=== PATIENT | female | born 1950 | race Caucasian/White ===

== ENCOUNTER 2018-02-06 14:13 | Outpatient (CLI) | payer BC | END 2018-02-06 14:14 | disposition home or self-care (01) | LOC: BICMAMMO 14:13 | PROVIDERS: ATTEND Obstetrics & Gynecology | DX: Z12.31 Encounter for screening mammogram for malignant neoplasm of breast (principal); N63.10 Unspecified lump in the right breast, unspecified quadrant | CPT/HCPCS: 77063; 77067 ==

== ENCOUNTER 2018-03-14 09:43 | Outpatient (CLI) | payer BC | END 2018-03-14 09:44 | disposition home or self-care (01) | LOC: BICMAMMO 09:43 | PROVIDERS: ATTEND Obstetrics & Gynecology | DX: N63.10 Unspecified lump in the right breast, unspecified quadrant (principal) | CPT/HCPCS: G0279 ==

== ENCOUNTER 2019-02-08 12:52 | Outpatient (CLI) | payer BC ==
--- NOTE | 2019-02-08 13:48 | MMO ---
Bilateral MAMMO Bilat Screen [facility]. CLINICAL HISTORY: Patient is 68 years old and is seen for screening. The patient has no family history of breast cancer. The patient has no personal history of cancer. VIEWS: The views performed were: bilateral craniocaudal with tomosynthesis and bilateral mediolateral oblique with tomosynthesis. FILMS COMPARED: The present examination has been compared to prior imaging studies performed at [facility] on 02/06/2018 and 03/14/2018. MAMMOGRAM FINDINGS: There are scattered fibroglandular densities. There are stable benign appearing calcifications seen in both breasts. There are no suspicious masses, suspicious calcifications, or new areas of architectural distortion. IMPRESSION: THERE IS NO MAMMOGRAPHIC EVIDENCE OF MALIGNANCY. A ROUTINE FOLLOW-UP MAMMOGRAM IN 1 YEAR IS RECOMMENDED. THE RESULTS OF THIS EXAM WERE SENT TO THE PATIENT. ACR BI-RADS Category 2 - Benign finding MAMMOGRAPHY NOTE: 1. A negative mammogram report should not delay a biopsy if a dominant of clinically suspicious mass is present. 2. Approximately 10% to 15% of breast cancers are not detected by mammography. 3. Adenosis and dense breasts may obscure an underlying neoplasm.
== END 2019-02-08 12:53 | disposition home or self-care (01) ==
LOC: BICMAMMO 12:52
PROVIDERS: ATTEND Obstetrics & Gynecology
DX: Z12.31 Encounter for screening mammogram for malignant neoplasm of breast (principal)
CPT/HCPCS: 77063; 77067

== ENCOUNTER 2021-02-16 17:48 | Inpatient (IN) | payer BC, MEDICARE ==
[~2021-02-16 17:48] MED LIST: Iopamidol-370 76% 500 ML 1 ML ONE
[2021-02-16 19:18] LABS: Mean Corpuscular HGB CONC 31.2 g/dL (32.0-36.0); Mean Corpuscular Hemoglobin 33.7 pg (27.0-31.0); Mean Platelet Volume 9.8 fL (7.4-10.4); Platelet Count 221 thou/uL (130-400); RBC Distribution Width 12.2 % (11.5-14.5); Red Blood Cell (RBC) Count 4.15 mill/uL (4.20-5.40); White Blood Cell (WBC) Count 40.2 thou/uL (4.8-10.8)
[2021-02-16 19:31] LABS: Band 15 % (5-11); Lymphocytes 18 % (21-51); MDiff Complete? YES; Macrocytosis SLIGHT = 6-15 cells (100X) (0-5/hpf); Metamyelocyte 1 % (0-0); Monocytes 5 % (0-10); Neutrophil 61 % (42-75); Platelet Morphology Comment Appears Adequate; Reflex for Review?? YES; Vacuoles SLIGHT
[2021-02-16] MEDS ORDERED: Cefepime 2 GM VIAL ONE (19:32)
[2021-02-16 19:35] LABS: ALT (SGPT) 63 U/L (8-55); AST (SGOT) 169 U/L (5-34); Albumin 3.4 g/dL (3.4-4.8); Alkaline Phosphatase 318 U/L (40-110); BUN (Urea Nitrogen) 24 mg/dL (9.8-20.1); Bilirubin, Total 0.8 mg/dL (0.2-1.2); CK (CPK) 454 U/L (29-168); Calc. Creatinine Clearance 0 mL/min (70-130); Calcium 8.9 mg/dL (7.8-10.44); Chloride 104 mmol/L (98-107); Globulin 2.8 g/dL (2.4-3.5); Glucose 126 mg/dL (80-115); Potassium 3.9 mmol/L (3.5-5.1); Protein, Total 6.2 g/dL (5.8-8.1); Sodium 139 mmol/L (136-145)
[2021-02-16 19:49] LABS: Carbon Dioxide Less than 8 mmol/L (23-31)
[2021-02-16] MEDS ORDERED: Vancomycin 1 GM/200 ML BAG ONE (20:07)
[2021-02-16 20:09] LABS: CKMB 44.1 ng/mL (0-6.6)
[2021-02-16 21:08] LABS: Bacteria/HPF 4+ HPF (None Seen); Bilirubin 1+ (Negative); Blood, Urine 3+ (Negative); Clarity Extra Turbid (Clear); Glucose, Urine (Dipstick) 50 mg/dL (Negative); Ketone, Urine Trace mg/dL (Negative); Leukocyte 25 Leu/uL (Negative); Nitrite Negative (Negative); Protein, Urine (Dipstick) 300 mg/dL (Neg-Trace); RBC/HPF Greater than 50 HPF (0-3); Renal Epithelial 0-3 HPF (None Seen); Specific Gravity, Urine 1.029 (1.002-1.036); pH, Urine 5.5 (5.0-9.0)
[2021-02-16 21:30] LABS: SARS-CoV-2 NAA Rapid Test Not Detected (NotDetected)
[2021-02-16] MEDS ORDERED: Midazolam HCl 2 mg/2 ml Vial ONE (21:54)
[2021-02-16 22:22] LABS: Troponin I 2.213 ng/mL (< 0.028)
[2021-02-16] MEDS ORDERED: Acetaminophen 650 MG Suppository PR PRN (22:25)
[2021-02-16] MEDS ORDERED: Acetaminophen 325 MG TAB PO PRN (22:25)
[2021-02-16] MEDS ORDERED: Pharmacy to Dose VANCOMYCIN AND MEROPENEM IVPB PRN (22:28)
[2021-02-16] MEDS ORDERED: Dextrose 5% in Water 1,000 ML IV PRN (22:29)
[2021-02-16] MEDS ORDERED: Dextrose 50% Abboject 50 ML SYRINGE SLOW IVP PRN (22:29)
[2021-02-16] MEDS ORDERED: Sodium Bicarb 50 MEQ/50 ML Abboject 8.4% SYRINGE IVP SCH (22:30)
[2021-02-16] MEDS ORDERED: Sodium Bicarb 50 MEQ/50 ML Abboject 8.4% SYRINGE ONE ×3 (22:35→22:47)
[2021-02-16] MEDS ORDERED: Dexamethasone 10 MG/ML VIAL ONE (22:36)
[2021-02-16] MEDS ORDERED: Norepinephrine 8 MG/0.9% NS 250 ML ONE (22:47)
[2021-02-16 23:13] LABS: Actual Bicarbonate (HCO3a) 7.5 mEq/L (22-28); Analyzer IN Cardio ER; Base Excess (BEa) -18.5 mEq/L (-2.0 to +3.0); Carboxyhemoglobin (COHb) 0.3 gm% (0.0-3.0); Hemoglobin (Hb) 11.4 g/dL (12.0-16.0); O2 Tension (PaO2), arterial 111.2 mmHg (> 70.0); Potassium - ABG Lab 3.94 mmol/L (3.70-5.30)
[2021-02-16 23:14] LABS: ALV-art Gradient 14.405 mmHg (0-20); CO2 Tension 19.3 mmHg (35.0-45.0); Puncture Site RRA; pH, Arterial 7.21 (7.35-7.45)
[2021-02-16 23:31] LABS: INR-International Normal Ratio 2.9; PTT 50.7 sec (22.9-36.1); Prothrombin Time 31.2 sec (12.0-14.7)
[2021-02-16 23:37] LABS: Magnesium 1.5 mg/dL (1.6-2.6)
[2021-02-17] MEDS ORDERED: Magnesium Sulfate 4 GM in Sodium Chloride 0.9% 250 ML 250 ML IVPB SCH (00:01)
[2021-02-17] MEDS: MEROPENEM 1 GM/50 ML 1 GM in Premix Bag 1 BAG IVPB SCH ×2 (00:41→12:41)
[2021-02-17] MEDS: Sodium Bicarbonate 150 MEQ in Dextrose 5% in Water 1,000 ML IV SCH ×4 (00:41→19:39)
[2021-02-17] MEDS ORDERED: Levothyroxine 100 MCG SDV IVP SCH (01:00)
[2021-02-17 01:07] LABS: BUN (Urea Nitrogen) 26 mg/dL (9.8-20.1); Calc. Creatinine Clearance 39 mL/min (70-130); Calcium 7.3 mg/dL (7.8-10.44); Carbon Dioxide Less than 8 mmol/L (23-31); Chloride 109 mmol/L (98-107); Glucose 108 mg/dL (80-115); Sodium 142 mmol/L (136-145)
[2021-02-17 01:56] LABS: Troponin I 3.238 ng/mL (< 0.028)
[2021-02-17] MEDS ORDERED: Heparin 25,000 units/D5W 500 ML IVPB SCH (02:15)
[2021-02-17] MEDS ORDERED: Heparin 10,000 UNITS/ 10 ML VIAL SLOW IVP SCH (02:15)
[2021-02-17 02:27] LABS: Hemoglobin 11.6 g/dL (12.0-16.0); Platelet Count 186 thou/uL (130-400)
[2021-02-17 03:29] LABS: Lactic Acid Greater than 13.4 mmol/L (0.5-2.2)
[2021-02-17 04:18] LABS: Hemoglobin A1c 6.2 % (4.0-6.0)
[2021-02-17 04:41] LABS: Band 20 % (5-11); Hypochromia SLIGHT = 6-15 cells (100X) (0-5/hpf); Lymphocytes 8 % (21-51); MDiff Complete? YES; Macrocytosis SLIGHT = 6-15 cells (100X) (0-5/hpf); Mean Corpuscular HGB CONC 32.1 g/dL (32.0-36.0); Mean Corpuscular Hemoglobin 33.9 pg (27.0-31.0); Monocytes 4 % (0-10); Neutrophil 68 % (42-75); Platelet Count 173 thou/uL (130-400); Platelet Morphology Comment Appears Adequate; Red Blood Cell (RBC) Count 3.26 mill/uL (4.20-5.40)
[2021-02-17 04:55] LABS: ALT (SGPT) 57 U/L (8-55); AST (SGOT) 145 U/L (5-34); Albumin 2.6 g/dL (3.4-4.8); Alkaline Phosphatase 116 U/L (40-110); Anion Gap 28 mmol/L (10-20); BUN (Urea Nitrogen) 29 mg/dL (9.8-20.1); Bilirubin, Total 0.9 mg/dL (0.2-1.2); Calc. Creatinine Clearance 38 mL/min (70-130); Calcium 7.2 mg/dL (7.8-10.44); Carbon Dioxide 9 mmol/L (23-31); Chloride 108 mmol/L (98-107); Globulin 1.9 g/dL (2.4-3.5); Glucose 234 mg/dL (80-115); Potassium 3.7 mmol/L (3.5-5.1); Protein, Total 4.5 g/dL (5.8-8.1); Sodium 141 mmol/L (136-145); Troponin I 4.575 ng/mL (< 0.028)
[2021-02-17 05:16] LABS: Lactic Acid 12.6 mmol/L (0.5-2.2)
[2021-02-17] MEDS ORDERED: Electrolyte Replacement Protocol 1 EACH FS ONE (07:48)
[2021-02-17] MEDS ORDERED: Ventilator Sedation Protocol 1 EACH FS ONE (07:48)
[2021-02-17] MEDS ORDERED: Fentanyl CADD 100 ML IV SCH (08:00)
[2021-02-17] MEDS ORDERED: Morphine 4 MG/ML VIAL SLOW IVP PRN (08:00)
[2021-02-17] MEDS ORDERED: Propofol BOLUS 1,000 MG/100 ML VIAL IV PRN (08:00)
[2021-02-17] MEDS ORDERED: Fentanyl BOLUS 250 ML IVPB PRN (08:00)
[2021-02-17] MEDS ORDERED: Lorazepam 2 MG/ML VIAL SLOW IVP PRN (08:00)
[2021-02-17] MEDS ORDERED: Morphine 2 MG/ML VIAL SLOW IVP PRN (08:00)
[2021-02-17] MEDS ORDERED: Electrolyte Replacement Protocol FS PRN (08:00)
[2021-02-17 08:27] LABS: INR-International Normal Ratio 3.2; Prothrombin Time 33.7 sec (12.0-14.7)
[2021-02-17 08:28] LABS: Troponin I 5.468 ng/mL (< 0.028)
[2021-02-17 08:33] LABS: PTT 134.3 sec (22.9-36.1)
[2021-02-17 08:36] LABS: ALT (SGPT) 69 U/L (8-55); AST (SGOT) 170 U/L (5-34); Albumin 2.6 g/dL (3.4-4.8); Alkaline Phosphatase 108 U/L (40-110); Anion Gap 20 mmol/L (10-20); BUN (Urea Nitrogen) 31 mg/dL (9.8-20.1); Bilirubin, Total 1.2 mg/dL (0.2-1.2); Calc. Creatinine Clearance 39 mL/min (70-130); Carbon Dioxide 15 mmol/L (23-31); Chloride 105 mmol/L (98-107); Glucose 410 mg/dL (80-115); Potassium 3.3 mmol/L (3.5-5.1); Protein, Total 4.6 g/dL (5.8-8.1); Sodium 137 mmol/L (136-145)
[2021-02-17] MEDS: Norepinephrine 8 MG/0.9% NS 250 ML IVPB SCH ×3 (08:37→22:32)
[2021-02-17] MEDS ORDERED: Famotidine 20 MG TAB PO SCH (09:00)
[2021-02-17] MEDS ORDERED: Lidocaine 1% (PF) 30 ML VIAL ONE (09:16)
[2021-02-17] MEDS: Pantoprazole 40 MG VIAL IVP SCH (09:20)
[2021-02-17] MEDS: Potassium Chloride 20 MEQ in Premix Bag 1 BAG IVPB SCH ×2 (09:28→12:42)
[2021-02-17] MEDS ORDERED: Bupivacaine 0.25% HCL 30 ML VIAL ONE (09:41)
[2021-02-17] MEDS ORDERED: Lidocaine 1% w/Epinephrine 1:100K 20 ML VIAL ONE (09:41)
[2021-02-17] MEDS ORDERED: Midazolam HCl 5 mg/5 ml Vial ONE (09:46)
[2021-02-17] MEDS ORDERED: Ketamine 50 MG/ML (10ML VIAL) ONE (09:46)
[2021-02-17] MEDS ORDERED: Fentanyl 100 MCG/2 ML VIAL ONE (09:46)
[2021-02-17] MEDS ORDERED: Dextrose 50% Abboject 50 ML SYRINGE IVP PRN (10:00)
[2021-02-17] MEDS ORDERED: Dextrose 5% in Water 1,000 ML IV PRN (10:00)
[2021-02-17] MEDS ORDERED: Insulin Regular 300 UNITS/3 ML VIAL SC PRN (10:00)
[2021-02-17] MEDS ORDERED: Rocuronium Bromide 10 MG/ML (10ML VIAL) ONE (10:10)
[2021-02-17] MEDS ORDERED: Calcium Chloride 1 GM/10 ML Abboject SYRINGE ONE (10:10)
[2021-02-17] MEDS ORDERED: Insulin Regular 300 UNITS/3 ML VIAL ONE (10:33)
[2021-02-17 11:54] LABS: Actual Bicarbonate (HCO3a) 18.9 mEq/L (22-28); Base Excess (BEa) -5.9 mEq/L (-2.0 to +3.0); Calcium, Ionized (arterial) 1.07 mmol/L (1.12-1.30); Carboxyhemoglobin (COHb) 0.3 gm% (0.0-3.0); Hemoglobin (Hb) 9.4 g/dL (12.0-16.0); O2 Tension (PaO2), arterial 227.3 mmHg (> 70.0); Potassium - ABG Lab 2.81 mmol/L (3.70-5.30); pH, Arterial 7.36 (7.35-7.45)
[2021-02-17 11:55] LABS: Puncture Site Arterial Line
[2021-02-17] MEDS: Propofol 1,000 MG/100 ML VIAL IV PRN (15:10)
[2021-02-17] MEDS: HUMULIN R 100 UNITS in Sodium Chloride 0.9% 100 ML IVPB SCH ×2 (15:10→20:29)
[2021-02-17 18:18] LABS: Hemoglobin 10.5 g/dL (12.0-16.0); Mean Corpuscular HGB CONC 35.2 g/dL (32.0-36.0); Mean Corpuscular Hemoglobin 35.3 pg (27.0-31.0); Mean Platelet Volume 10.1 fL (7.4-10.4); Platelet Count 147 thou/uL (130-400); RBC Distribution Width 12.2 % (11.5-14.5); Red Blood Cell (RBC) Count 2.97 mill/uL (4.20-5.40); White Blood Cell (WBC) Count 36.2 thou/uL (4.8-10.8)
[2021-02-17 18:39] LABS: Lactic Acid 4.1 mmol/L (0.5-2.2)
[2021-02-17 18:40] LABS: Band 26 % (5-11); Basophilic Stippling SLIGHT = 1-2 cells (100X) (None Seen); Lymphocytes 1 % (21-51); MDiff Complete? YES; Metamyelocyte 5 % (0-0); Monocytes 1 % (0-10); Neutrophil 67 % (42-75); Platelet Morphology Comment Appears Adequate; Polychromasia SLIGHT = 2-3 cells (100X) (0-2/hpf)
[2021-02-17 19:28] LABS: Vancomycin, Random 6.8 ug/mL (See Comment)
[2021-02-17] MEDS ORDERED: Vancomycin 1 GM in Premix Bag 1 BAG IVPB SCH (20:00)
[2021-02-17] MEDS ORDERED: Vancomycin HCl 750 MG in Sodium Chloride 0.9% 250 ML 250 ML IVPB SCH (23:59)
[2021-02-18] MEDS: MEROPENEM 1 GM/50 ML 1 GM in Premix Bag 1 BAG IVPB SCH ×2 (00:38→13:01)
[2021-02-18] MEDS: HUMULIN R 100 UNITS in Sodium Chloride 0.9% 100 ML IVPB SCH (00:40)
[2021-02-18] MEDS: Sodium Bicarbonate 150 MEQ in Dextrose 5% in Water 1,000 ML IV SCH (02:31)
[2021-02-18] MEDS: Propofol 1,000 MG/100 ML VIAL IV PRN (03:45)
[2021-02-18] MEDS: Norepinephrine 8 MG/0.9% NS 250 ML IVPB SCH ×2 (04:10→17:01)
[2021-02-18 04:43] LABS: PTT 29.4 sec (22.9-36.1)
[2021-02-18 04:44] LABS: INR-International Normal Ratio 2.3; Prothrombin Time 25.4 sec (12.0-14.7)
[2021-02-18 04:56] LABS: ALT (SGPT) 73 U/L (8-55); AST (SGOT) 186 U/L (5-34); Albumin 2.7 g/dL (3.4-4.8); Alkaline Phosphatase 116 U/L (40-110); Anion Gap 10 mmol/L (10-20); BUN (Urea Nitrogen) 22 mg/dL (9.8-20.1); Bilirubin, Total 0.9 mg/dL (0.2-1.2); Calc. Creatinine Clearance 69 mL/min (70-130); Calcium 7.3 mg/dL (7.8-10.44); Carbon Dioxide 31 mmol/L (23-31); Chloride 104 mmol/L (98-107); Globulin 2.4 g/dL (2.4-3.5); Glucose 92 mg/dL (80-115); Magnesium 2.1 mg/dL (1.6-2.6); Potassium 3.3 mmol/L (3.5-5.1); Protein, Total 5.1 g/dL (5.8-8.1); Sodium 142 mmol/L (136-145)
[2021-02-18 05:09] LABS: Hemoglobin 10.4 g/dL (12.0-16.0); Mean Corpuscular HGB CONC 34.4 g/dL (32.0-36.0); Mean Platelet Volume 10.1 fL (7.4-10.4); Platelet Count 138 thou/uL (130-400); RBC Distribution Width 12.3 % (11.5-14.5); Red Blood Cell (RBC) Count 2.97 mill/uL (4.20-5.40); White Blood Cell (WBC) Count 36.6 thou/uL (4.8-10.8)
[2021-02-18 05:12] LABS: Band 1 % (5-11); Lymphocytes 7 % (21-51); MDiff Complete? YES; Metamyelocyte 2 % (0-0); Monocytes 3 % (0-10); Neutrophil 87 % (42-75); Platelet Morphology Comment Appears Adequate
[2021-02-18] MEDS: Levothyroxine Sodium 50 MCG TAB PO SCH (06:12)
[2021-02-18] MEDS ORDERED: Potassium Chloride 40 MEQ in Sodium Chloride 0.9% 250 ML 250 ML IVPB SCH (07:15)
[2021-02-18 07:57] LABS: Actual Bicarbonate (HCO3a) 28.8 mEq/L (22-28); Base Excess (BEa) 6.1 mEq/L (-2.0 to +3.0); CO2 Tension 34.7 mmHg (35.0-45.0); Calcium, Ionized (arterial) 0.94 mmol/L (1.12-1.30); Carboxyhemoglobin (COHb) 0.3 gm% (0.0-3.0); Hemoglobin (Hb) 10.8 g/dL (12.0-16.0); O2 Tension (PaO2), arterial 72.1 mmHg (> 70.0); pH, Arterial 7.54 (7.35-7.45)
[2021-02-18] MEDS ORDERED: Dextrose 5% in Water 1,000 ML IV PRN (08:01)
[2021-02-18] MEDS ORDERED: Insulin Regular 300 UNITS/3 ML VIAL SC PRN (08:01)
[2021-02-18] MEDS ORDERED: DC Sedation Protocol FS ONE (08:01)
[2021-02-18] MEDS ORDERED: Dextrose 50% Abboject 50 ML SYRINGE SLOW IVP PRN (08:01)
[2021-02-18 08:02] LABS: ALV-art Gradient 169.725 mmHg (0-20); Puncture Site RRA
[2021-02-18 08:11] LABS: Lactic Acid 2.4 mmol/L (0.5-2.2)
[2021-02-18] MEDS ORDERED: Cefepime 1 GM in Sodium Chloride 0.9% 100 ML IVPB SCH (09:00)
[2021-02-18] MEDS ORDERED: Heparin 5,000 UNITS/ML VIAL SC SCH (09:00)
[2021-02-18] MEDS: Pantoprazole 40 MG VIAL IVP SCH (09:18)
[2021-02-18] MEDS: Lactated Ringer's 1,000 ML IV SCH (09:18)
[2021-02-18 13:20] LABS: Potassium 3.7 mmol/L (3.5-5.1)
[2021-02-18 13:21] LABS: Glucose 128 mg/dL (80-115)
[2021-02-18 14:42] LABS: Vancomycin, Random 10.2 ug/mL (See Comment)
[2021-02-18] MEDS ORDERED: VANCOMYCIN 1.25 GM/250 ML BAG 1.25 GM in Premix Bag 1 BAG IVPB SCH (16:00)
[2021-02-18 17:33] LABS: HBSAB Concentration Less than 8.00 mIU/mL; HBSAg Index 0.26 S/CO (0-0.99); Hep A IgM AB Non-Reactive (NonReactive); Hep A IgM S/CO 0.07 S/CO (0-0.79); Hep B Surf AB Non-Reactive (NonReactive); Hep B Surf Ag Non-Reactive S/CO (NonReactive); Hep C IgG Ab Non-Reactive (NonReactive)
[2021-02-18] MEDS ORDERED: Phytonadione 10 MG/ML AMP SC SCH (18:30)
[2021-02-18] MEDS: Thiamine 100 MG TAB PO SCH (18:33)
[2021-02-19] MEDS: MEROPENEM 1 GM/50 ML 1 GM in Premix Bag 1 BAG IVPB SCH ×3 (00:47→16:11)
[2021-02-19] MEDS: Lactated Ringer's 1,000 ML IV SCH (00:50)
[2021-02-19 02:03] LABS: Glucose 149 mg/dL (80-115)
[2021-02-19] MEDS ORDERED: Furosemide 20 MG/2 ML VIAL SLOW IVP SCH ×2 (04:15→04:30)
[2021-02-19 04:17] LABS: Actual Bicarbonate (HCO3a) 27.8 mEq/L (22-28); Base Excess (BEa) 3.3 mEq/L (-2.0 to +3.0); CO2 Tension 41.9 mmHg (35.0-45.0); Calcium, Ionized (arterial) 1.06 mmol/L (1.12-1.30); Carboxyhemoglobin (COHb) 0.3 gm% (0.0-3.0); Hemoglobin (Hb) 10.8 g/dL (12.0-16.0); O2 Tension (PaO2), arterial 91.9 mmHg (> 70.0); Potassium - ABG Lab 3.64 mmol/L (3.70-5.30); pH, Arterial 7.44 (7.35-7.45)
[2021-02-19 04:23] LABS: ALV-art Gradient 140.925 mmHg (0-20); Puncture Site RRA
[2021-02-19 05:21] LABS: INR-International Normal Ratio 1.3; Prothrombin Time 16.7 sec (12.0-14.7)
[2021-02-19 05:40] LABS: #Lymphocytes 2.1 thou/uL (1.20-3.40); #Monocytes 0.4 thou/uL (0.11-0.59); #Neutrophils 16.1 thou/uL (1.40-6.50); %Basophils 0.1 % (0.0-1.0); %Eosinophils 0.1 % (0.0-10.0); %Lymphocytes 11.3 % (21.0-51.0); %Monocytes 2.2 % (0.0-10.0); %Neutrophils 86.3 % (42.0-75.0); Hemoglobin 9.9 g/dL (12.0-16.0); Mean Corpuscular HGB CONC 33.8 g/dL (32.0-36.0); Mean Corpuscular Hemoglobin 34.6 pg (27.0-31.0); Mean Platelet Volume 10.5 fL (7.4-10.4); Platelet Count 73 thou/uL (130-400); Platelet Morphology Comment Appears Decreased; RBC Distribution Width 12.6 % (11.5-14.5); Red Blood Cell (RBC) Count 2.84 mill/uL (4.20-5.40); White Blood Cell (WBC) Count 18.7 thou/uL (4.8-10.8)
[2021-02-19 05:44] LABS: ALT (SGPT) 81 U/L (8-55); AST (SGOT) 176 U/L (5-34); Albumin 2.7 g/dL (3.4-4.8); Alkaline Phosphatase 228 U/L (40-110); Anion Gap 9 mmol/L (10-20); BUN (Urea Nitrogen) 18 mg/dL (9.8-20.1); Bilirubin, Total 0.7 mg/dL (0.2-1.2); Calc. Creatinine Clearance 73 mL/min (70-130); Calcium 7.6 mg/dL (7.8-10.44); Carbon Dioxide 30 mmol/L (23-31); Chloride 106 mmol/L (98-107); Globulin 2.1 g/dL (2.4-3.5); Glucose 139 mg/dL (80-115); Iron 63 ug/dL (50-170); Iron Binding Capacity, Total 201 mcg/dL (265-497); Magnesium 1.6 mg/dL (1.6-2.6); Potassium 3.6 mmol/L (3.5-5.1); Protein, Total 4.8 g/dL (5.8-8.1); Sodium 141 mmol/L (136-145)
[2021-02-19] MEDS: Levothyroxine Sodium 50 MCG TAB PO SCH (05:55)
[2021-02-19] MEDS ORDERED: Magnesium 2 GM/50 ML 2 GM in Premix Bag 1 BAG IVPB SCH (06:15)
[2021-02-19] MEDS: Pantoprazole 40 MG VIAL IVP SCH (08:30)
[2021-02-19 09:38] LABS: Reference Lab Name LABCORP
[2021-02-19 09:39] LABS: Ref Lab Test Ordered METFORMIN
[2021-02-19] MEDS: Thiamine 100 MG TAB PO SCH (16:11)
[2021-02-19 17:17] LABS: EliA Vaculitis New Method **** NEW METHOD ****; Mitochondrial Ab 4.8 U/mL (<4 Negative)
[2021-02-19] MEDS: Phytonadione 10 MG/ML AMP SC SCH (20:18)
[2021-02-20] MEDS: MEROPENEM 1 GM/50 ML 1 GM in Premix Bag 1 BAG IVPB SCH ×3 (01:33→17:24)
[2021-02-20 05:09] LABS: Hemoglobin 9.4 g/dL (12.0-16.0); Mean Corpuscular HGB CONC 33.9 g/dL (32.0-36.0); Mean Corpuscular Hemoglobin 35.1 pg (27.0-31.0); Mean Platelet Volume 9.8 fL (7.4-10.4); Platelet Count 66 thou/uL (130-400); RBC Distribution Width 12.4 % (11.5-14.5); Red Blood Cell (RBC) Count 2.67 mill/uL (4.20-5.40); White Blood Cell (WBC) Count 12.3 thou/uL (4.8-10.8)
[2021-02-20 05:17] LABS: PTT 27.6 sec (22.9-36.1); Prothrombin Time 13.8 sec (12.0-14.7)
[2021-02-20 05:42] LABS: Anion Gap 11 mmol/L (10-20); BUN (Urea Nitrogen) 17 mg/dL (9.8-20.1); Calc. Creatinine Clearance 74 mL/min (70-130); Calcium 7.9 mg/dL (7.8-10.44); Carbon Dioxide 28 mmol/L (23-31); Chloride 107 mmol/L (98-107); Glucose 100 mg/dL (80-115); Magnesium 1.7 mg/dL (1.6-2.6); Potassium 3.4 mmol/L (3.5-5.1); Sodium 143 mmol/L (136-145)
[2021-02-20] MEDS ORDERED: Potassium Chloride 20 MEQ TAB PO SCH (06:15)
[2021-02-20] MEDS ORDERED: Magnesium 2 GM/50 ML 2 GM in Premix Bag 1 BAG IVPB SCH (06:15)
[2021-02-20] MEDS: Levothyroxine Sodium 50 MCG TAB PO SCH (06:43)
[2021-02-20 07:04] LABS: Band 10 % (5-11); Lymphocytes 14 % (21-51); MDiff Complete? YES; Neutrophil 76 % (42-75); Platelet Morphology Comment Appears Decreased
[2021-02-20] MEDS: Pantoprazole 40 MG VIAL IVP SCH (09:26)
[2021-02-20] MEDS ORDERED: GUAIFENESIN SF SOLN 200 MG/10 ML UDCUP PO PRN (09:59)
[2021-02-20] MEDS ORDERED: Senokot S 8.6-50 MG TAB PO PRN (09:59)
[2021-02-20] MEDS ORDERED: Bisacodyl 5 MG TAB PO PRN (09:59)
[2021-02-20] MEDS ORDERED: Calcium Carbonate 500 MG ChewTAB PO PRN (09:59)
[2021-02-20] MEDS ORDERED: Sodium Chloride 0.65% Nasal 44 ML BOT EA NARE PRN (09:59)
[2021-02-20] MEDS ORDERED: Ondansetron ODT 4 MG TAB SL PRN (09:59)
[2021-02-20] MEDS ORDERED: hydrALAZINE 20 MG/ML VIAL SLOW IVP PRN (09:59)
[2021-02-20] MEDS ORDERED: Cepastat Lozenges 1 LOZ PO PRN (09:59)
[2021-02-20] MEDS ORDERED: Loratadine 10 MG TAB PO PRN (09:59)
[2021-02-20] MEDS ORDERED: PROPOFOL 200 MG/20 ML VIAL ONE (11:45)
[2021-02-20] MEDS ORDERED: Lidocaine 1% PF 5 ML VIAL ONE (11:45)
[2021-02-20] MEDS ORDERED: Promethazine HCl 25 MG/ML VIAL IM PRN (11:54)
[2021-02-20] MEDS ORDERED: Ondansetron HCl/PF 4 MG/2 ML Vial IVP PRN (11:54)
[2021-02-20] MEDS ORDERED: Promethazine HCl 25 MG/ML VIAL SLOW IVP PRN (11:54)
[2021-02-20] MEDS: Folic Acid/Vit B Comp W-C PO SCH (13:18)
[2021-02-20] MEDS: Potassium Chloride 10 MEQ in Premix Bag 1 BAG IVPB SCH ×3 (13:19→17:44)
[2021-02-20] MEDS: Thiamine 100 MG TAB PO SCH (17:24)
[2021-02-20] MEDS: Phytonadione 10 MG/ML AMP SC SCH (20:54)
[2021-02-21] MEDS: MEROPENEM 1 GM/50 ML 1 GM in Premix Bag 1 BAG IVPB SCH ×3 (00:44→16:57)
[2021-02-21] MEDS: Levothyroxine Sodium 50 MCG TAB PO SCH (05:18)
[2021-02-21 05:43] LABS: #Lymphocytes 1.6 thou/uL (1.20-3.40); #Monocytes 0.6 thou/uL (0.11-0.59); #Neutrophils 8.1 thou/uL (1.40-6.50); %Eosinophils 0.4 % (0.0-10.0); %Lymphocytes 15.3 % (21.0-51.0); %Monocytes 5.4 % (0.0-10.0); Hemoglobin 9.5 g/dL (12.0-16.0); Mean Corpuscular HGB CONC 33.7 g/dL (32.0-36.0); Mean Corpuscular Hemoglobin 34.8 pg (27.0-31.0); Mean Platelet Volume 10.8 fL (7.4-10.4); Platelet Count 55 thou/uL (130-400); RBC Distribution Width 12.1 % (11.5-14.5); Red Blood Cell (RBC) Count 2.72 mill/uL (4.20-5.40); White Blood Cell (WBC) Count 10.3 thou/uL (4.8-10.8)
[2021-02-21 05:47] LABS: PTT 26.4 sec (22.9-36.1); Prothrombin Time 13.7 sec (12.0-14.7)
[2021-02-21 06:06] LABS: ALT (SGPT) 60 U/L (8-55); AST (SGOT) 93 U/L (5-34); Albumin 2.8 g/dL (3.4-4.8); Alkaline Phosphatase 339 U/L (40-110); Bilirubin, Direct 0.9 mg/dL (0.1-0.3); Bilirubin, Total 1.4 mg/dL (0.2-1.2); Phosphorus 2.6 mg/dL (2.3-4.7); Protein, Total 5.3 g/dL (5.8-8.1)
[2021-02-21 06:16] LABS: Anion Gap 12 mmol/L (10-20); BUN (Urea Nitrogen) 16 mg/dL (9.8-20.1); Calc. Creatinine Clearance 104 mL/min (70-130); Calcium 8.1 mg/dL (7.8-10.44); Carbon Dioxide 23 mmol/L (23-31); Chloride 108 mmol/L (98-107); Glucose 102 mg/dL (80-115); Magnesium 1.7 mg/dL (1.6-2.6); Potassium 3.8 mmol/L (3.5-5.1); Sodium 139 mmol/L (136-145)
[2021-02-21] MEDS: Folic Acid/Vit B Comp W-C PO SCH (10:09)
[2021-02-21] MEDS ORDERED: Furosemide 40 MG/4 ML VIAL SLOW IVP SCH (11:15)
[2021-02-21] MEDS: Phytonadione 10 MG/ML AMP SC SCH (20:29)
[2021-02-22] MEDS: MEROPENEM 1 GM/50 ML 1 GM in Premix Bag 1 BAG IVPB SCH ×3 (02:29→15:46)
[2021-02-22 05:27] LABS: #Lymphocytes 1.8 thou/uL (1.20-3.40); #Monocytes 0.7 thou/uL (0.11-0.59); #Neutrophils 3.4 thou/uL (1.40-6.50); %Basophils 0.5 % (0.0-1.0); %Eosinophils 0.7 % (0.0-10.0); %Lymphocytes 30.6 % (21.0-51.0); %Monocytes 11.5 % (0.0-10.0); %Neutrophils 56.7 % (42.0-75.0); Hemoglobin 9.1 g/dL (12.0-16.0); Mean Corpuscular Hemoglobin 35.5 pg (27.0-31.0); Mean Platelet Volume 10.4 fL (7.4-10.4); Platelet Count 54 thou/uL (130-400); RBC Distribution Width 12.1 % (11.5-14.5); Red Blood Cell (RBC) Count 2.56 mill/uL (4.20-5.40)
[2021-02-22 05:33] LABS: ALT (SGPT) 48 U/L (8-55); AST (SGOT) 63 U/L (5-34); Albumin 2.8 g/dL (3.4-4.8); Alkaline Phosphatase 299 U/L (40-110); Bilirubin, Direct 0.7 mg/dL (0.1-0.3); Bilirubin, Total 1.1 mg/dL (0.2-1.2)
[2021-02-22 05:39] LABS: Anion Gap 10 mmol/L (10-20); BUN (Urea Nitrogen) 14 mg/dL (9.8-20.1); Calc. Creatinine Clearance 98 mL/min (70-130); Calcium 8.2 mg/dL (7.8-10.44); Carbon Dioxide 28 mmol/L (23-31); Chloride 106 mmol/L (98-107); Glucose 119 mg/dL (80-115); Potassium 3.3 mmol/L (3.5-5.1); Sodium 141 mmol/L (136-145)
[2021-02-22] MEDS: Levothyroxine Sodium 50 MCG TAB PO SCH (06:31)
[2021-02-22] MEDS ORDERED: Potassium Chloride 20 MEQ TAB PO SCH (06:45)
[2021-02-22] MEDS: Potassium Chloride 20 MEQ TAB PO SCH ×2 (08:36→20:53)
[2021-02-22] MEDS: Folic Acid/Vit B Comp W-C PO SCH (08:36)
[2021-02-22] MEDS: Metoprolol Tartrate 25 MG TAB PO SCH ×2 (08:36→20:53)
[2021-02-22] MEDS: Saccharomyces boulardii 250 MG CAP PO SCH (08:36)
[2021-02-22] MEDS: Magnesium Oxide 400 MG TAB PO SCH ×2 (08:36→20:54)
[2021-02-22] MEDS: Polyethylene Glycol 3350 17 GM Packet PO SCH (08:37)
[2021-02-22] MEDS ORDERED: Metoprolol Tartrate 25 MG TAB PO SCH (09:00)
[2021-02-22 12:17] LABS: Actual Bicarbonate (HCO3a) 21.1 mEq/L (22-28); Analyzer IN Cardio OR; Base Excess (BEa) -1.6 mEq/L (-2.0 to +3.0); CO2 Tension 28.9 mmHg (35.0-45.0); Hemoglobin (Hb) 10.2 g/dL (12.0-16.0); pH, Arterial 7.48 (7.35-7.45)
[2021-02-22 12:22] LABS: Actual Bicarbonate (HCO3a) 19.5 mEq/L (22-28); Analyzer IN Cardio OR; Base Excess (BEa) -3.1 mEq/L (-2.0 to +3.0); CO2 Tension 26.5 mmHg (35.0-45.0); Calcium, Ionized (arterial) 1.34 mmol/L (1.12-1.30); Hemoglobin (Hb) 9.3 g/dL (12.0-16.0); Potassium - ABG Lab 2.99 mmol/L (3.70-5.30); pH, Arterial 7.48 (7.35-7.45)
[2021-02-22 12:30] LABS: O2 Tension (PaO2), arterial 545.4 mmHg (> 70.0)
[2021-02-22 12:30] LABS: Puncture Site Arterial Line
[2021-02-22 12:31] LABS: Puncture Site Arterial Line
[2021-02-22] MEDS ORDERED: Furosemide 40 MG/4 ML VIAL SLOW IVP SCH ×2 (14:00)
[2021-02-22] MEDS: Furosemide 20 MG/2 ML VIAL SLOW IVP SCH (15:46)
[2021-02-23] MEDS: MEROPENEM 1 GM/50 ML 1 GM in Premix Bag 1 BAG IVPB SCH (00:33)
[2021-02-23 05:11] LABS: #Eosinphils 0.1 thou/uL (0.0-0.7); #Lymphocytes 2.2 thou/uL (1.20-3.40); #Neutrophils 3.8 thou/uL (1.40-6.50); %Lymphocytes 31.2 % (21.0-51.0); %Monocytes 13.5 % (0.0-10.0); %Neutrophils 53.4 % (42.0-75.0); Mean Corpuscular HGB CONC 34.4 g/dL (32.0-36.0); Mean Corpuscular Hemoglobin 34.7 pg (27.0-31.0); Mean Platelet Volume 10.4 fL (7.4-10.4); Platelet Count 68 thou/uL (130-400)
[2021-02-23 05:14] LABS: ALT (SGPT) 46 U/L (8-55); AST (SGOT) 63 U/L (5-34); Albumin 2.8 g/dL (3.4-4.8); Alkaline Phosphatase 269 U/L (40-110); Bilirubin, Direct 0.7 mg/dL (0.1-0.3); Bilirubin, Total 1.2 mg/dL (0.2-1.2); Protein, Total 5.2 g/dL (5.8-8.1)
[2021-02-23 05:22] LABS: Anion Gap 11 mmol/L (10-20); BUN (Urea Nitrogen) 10 mg/dL (9.8-20.1); Calc. Creatinine Clearance 98 mL/min (70-130); Calcium 8.5 mg/dL (7.8-10.44); Carbon Dioxide 29 mmol/L (23-31); Chloride 104 mmol/L (98-107); Glucose 106 mg/dL (80-115); Magnesium 1.6 mg/dL (1.6-2.6); Potassium 3.3 mmol/L (3.5-5.1); Sodium 141 mmol/L (136-145)
[2021-02-23] MEDS: Levothyroxine Sodium 50 MCG TAB PO SCH (05:59)
[2021-02-23] MEDS: Furosemide 20 MG/2 ML VIAL SLOW IVP SCH ×2 (05:59→15:15)
[2021-02-23] MEDS ORDERED: Potassium Chloride 20 MEQ TAB PO SCH (07:45)
[2021-02-23] MEDS: Magnesium Oxide 400 MG TAB PO SCH ×2 (08:25→20:32)
[2021-02-23] MEDS: Folic Acid 1 MG TAB PO SCH (08:26)
[2021-02-23] MEDS: Polyethylene Glycol 3350 17 GM Packet PO SCH (08:26)
[2021-02-23] MEDS: Saccharomyces boulardii 250 MG CAP PO SCH (08:26)
[2021-02-23] MEDS: Metoprolol Tartrate 25 MG TAB PO SCH ×2 (08:26→20:32)
[2021-02-23] MEDS: Cyanocobalamin (Vitamin B-12) 1,000 MCG TAB PO SCH (08:28)
[2021-02-23 11:17] LABS: Alpha-1-Antitrypsin 141 mg/dL (101-187)
[2021-02-23 13:17] LABS: Smooth Muscle Total ABS 9 Units (0-19)
[2021-02-23 15:14] LABS: Heparin-Induced Ab (HITA) 0.05 OD (0.000-0.400)
[2021-02-23] MEDS: Ondansetron PF 4 MG/2 ML Vial IVP PRN (22:46)
[2021-02-24 05:08] LABS: Mean Corpuscular HGB CONC 33.9 g/dL (32.0-36.0); Mean Corpuscular Hemoglobin 34.9 pg (27.0-31.0); Mean Platelet Volume 10.8 fL (7.4-10.4); Platelet Count 101 thou/uL (130-400); RBC Distribution Width 12.7 % (11.5-14.5); Red Blood Cell (RBC) Count 2.88 mill/uL (4.20-5.40); White Blood Cell (WBC) Count 9.5 thou/uL (4.8-10.8)
[2021-02-24 05:22] LABS: Anion Gap 14 mmol/L (10-20); BUN (Urea Nitrogen) 10 mg/dL (9.8-20.1); Calc. Creatinine Clearance 85 mL/min (70-130); Calcium 8.8 mg/dL (7.8-10.44); Carbon Dioxide 33 mmol/L (23-31); Chloride 99 mmol/L (98-107); Glucose 126 mg/dL (80-115); Potassium 3.5 mmol/L (3.5-5.1); Sodium 142 mmol/L (136-145)
[2021-02-24 05:42] LABS: Band 18 % (5-11); Lymphocytes 21 % (21-51); MDiff Complete? YES; Monocytes 7 % (0-10); Neutrophil 54 % (42-75); Platelet Morphology Comment Appears Decreased
[2021-02-24] MEDS: Cyanocobalamin (Vitamin B-12) 1,000 MCG TAB PO SCH (06:06)
[2021-02-24] MEDS: Folic Acid 1 MG TAB PO SCH (06:06)
[2021-02-24] MEDS: Metoprolol Tartrate 25 MG TAB PO SCH ×2 (06:07→20:54)
[2021-02-24] MEDS: Magnesium Oxide 400 MG TAB PO SCH ×2 (06:07→20:52)
[2021-02-24] MEDS: Saccharomyces boulardii 250 MG CAP PO SCH ×2 (06:07→08:44)
[2021-02-24] MEDS: Levothyroxine Sodium 50 MCG TAB PO SCH (06:07)
[2021-02-24] MEDS: Ondansetron PF 4 MG/2 ML Vial IVP PRN (06:12)
[2021-02-24] MEDS ORDERED: Fentanyl 100 MCG/2 ML VIAL ONE (07:16)
[2021-02-24] MEDS ORDERED: Phenylephrine 10 MG/ML VIAL ONE (07:17)
[2021-02-24] MEDS ORDERED: Propofol 500 MG/50 ML VIAL ONE ×2 (07:42→09:20)
[2021-02-24] MEDS ORDERED: Lidocaine 1% (PF) 30 ML VIAL ONE (08:01)
[2021-02-24] MEDS ORDERED: Lidocaine 1% PF 5 ML VIAL ONE (08:11)
[2021-02-24] MEDS ORDERED: Ondansetron PF 4 MG/2 ML Vial ONE (08:11)
[2021-02-24] MEDS ORDERED: PHENYLEPHRINE-NS 100 MCG/ML 10 ML SYRINGE ONE (08:11)
[2021-02-24] MEDS ORDERED: Iopamidol 370 76% 50 ML VIAL FS ONE (08:43)
[2021-02-24] MEDS ORDERED: Iopamidol 370 76% 100 ML VIAL ONE (08:43)
[2021-02-24] MEDS: Polyethylene Glycol 3350 17 GM Packet PO SCH (08:44)
[2021-02-24] MEDS: Furosemide 20 MG/2 ML VIAL SLOW IVP SCH ×2 (08:55→15:13)
[2021-02-24] MEDS ORDERED: Nitroglycerin 0.4 MG TAB (25 Tab Bottle) SL PRN (11:12)
[2021-02-24] MEDS ORDERED: Acetaminophen/Codeine 30-300mg Tablet PO PRN ×2 (11:12)
[2021-02-24] MEDS ORDERED: Sodium Chloride 0.9% 200 ML IV PRN (11:12)
[2021-02-24] MEDS: Aspirin Chewable 81 MG TAB PO SCH ×2 (20:54→20:57)
[2021-02-25 04:58] LABS: #Basophils 0.1 thou/uL (0.0-0.2); #Lymphocytes 2.1 thou/uL (1.20-3.40); #Monocytes 1.3 thou/uL (0.11-0.59); #Neutrophils 9.3 thou/uL (1.40-6.50); %Basophils 0.5 % (0.0-1.0); %Eosinophils 0.3 % (0.0-10.0); %Lymphocytes 16.1 % (21.0-51.0); %Monocytes 10.2 % (0.0-10.0); %Neutrophils 72.9 % (42.0-75.0); Hemoglobin 9.5 g/dL (12.0-16.0); Mean Corpuscular HGB CONC 33.1 g/dL (32.0-36.0); Mean Corpuscular Hemoglobin 34.2 pg (27.0-31.0); Platelet Count 140 thou/uL (130-400); RBC Distribution Width 13.3 % (11.5-14.5); Red Blood Cell (RBC) Count 2.78 mill/uL (4.20-5.40); White Blood Cell (WBC) Count 12.8 thou/uL (4.8-10.8)
[2021-02-25 05:18] LABS: Anion Gap 15 mmol/L (10-20); BUN (Urea Nitrogen) 11 mg/dL (9.8-20.1); Calc. Creatinine Clearance 86 mL/min (70-130); Calcium 8.7 mg/dL (7.8-10.44); Carbon Dioxide 29 mmol/L (23-31); Chloride 100 mmol/L (98-107); Glucose 108 mg/dL (80-115); Potassium 3.3 mmol/L (3.5-5.1); Sodium 141 mmol/L (136-145)
[2021-02-25] MEDS: Furosemide 20 MG/2 ML VIAL SLOW IVP SCH (05:31)
[2021-02-25] MEDS: Levothyroxine Sodium 50 MCG TAB PO SCH (05:35)
[2021-02-25] MEDS: Folic Acid 1 MG TAB PO SCH (08:36)
[2021-02-25] MEDS: Aspirin Chewable 81 MG TAB PO SCH (08:36)
[2021-02-25] MEDS: Cyanocobalamin (Vitamin B-12) 1,000 MCG TAB PO SCH (08:36)
[2021-02-25] MEDS: Metoprolol Tartrate 25 MG TAB PO SCH ×2 (08:36→20:38)
[2021-02-25] MEDS: Magnesium Oxide 400 MG TAB PO SCH ×2 (08:36→20:38)
[2021-02-25] MEDS: Polyethylene Glycol 3350 17 GM Packet PO SCH (08:37)
[2021-02-25] MEDS: Saccharomyces boulardii 250 MG CAP PO SCH (08:37)
[2021-02-25] MEDS ORDERED: Iopamidol 370 76% 100 ML VIAL ONE (09:37)
[2021-02-25] MEDS: Ondansetron PF 4 MG/2 ML Vial IVP PRN (11:54)
[2021-02-25] MEDS: Metoclopramide HCl 10 MG/2 ML VIAL IVP SCH ×2 (15:39→22:23)
[2021-02-25 18:15] LABS: Bacteria/HPF None Seen HPF (None Seen); Bilirubin Negative (Negative); Blood, Urine Negative (Negative); Clarity Clear (Clear); Glucose, Urine (Dipstick) Normal (Negative); Ketone, Urine 80 mg/dL (Negative); Leukocyte Negative Leu/uL (Negative); Nitrite Negative (Negative); Protein, Urine (Dipstick) 30 mg/dL (Neg-Trace); Squamous Epithelial 0-3 HPF (0-3); Urobilinogen Normal mg/dL (Less than 2); WBC/HPF 0-3 HPF (0-3)
[2021-02-25 18:24] LABS: RBC/HPF 0-3 HPF (0-3); Specific Gravity, Urine Greater than 1.060 (1.002-1.036)
[2021-02-25 18:26] LABS: Urine Culture Reflex No No
[2021-02-25] MEDS: Pantoprazole 80 MG in Sodium Chloride 0.9% 100 ML IVPB SCH (20:37)
[2021-02-25] MEDS ORDERED: Pantoprazole 40 MG VIAL IVP SCH (21:00)
[2021-02-25] MEDS: Sodium Chloride 0.9% 1,000 ML IV SCH (22:23)
[2021-02-26 04:45] LABS: #Monocytes 1.2 thou/uL (0.11-0.59); #Neutrophils 10.7 thou/uL (1.40-6.50); %Basophils 0.2 % (0.0-1.0); %Eosinophils 0.2 % (0.0-10.0); %Lymphocytes 14.5 % (21.0-51.0); %Monocytes 8.5 % (0.0-10.0); %Neutrophils 76.6 % (42.0-75.0); Hemoglobin 10.9 g/dL (12.0-16.0); Mean Corpuscular HGB CONC 34.6 g/dL (32.0-36.0); Mean Corpuscular Hemoglobin 35.7 pg (27.0-31.0); Mean Platelet Volume 9.9 fL (7.4-10.4); Platelet Count 199 thou/uL (130-400); RBC Distribution Width 13.5 % (11.5-14.5); Red Blood Cell (RBC) Count 3.06 mill/uL (4.20-5.40); White Blood Cell (WBC) Count 13.9 thou/uL (4.8-10.8)
[2021-02-26 05:08] LABS: Anion Gap 17 mmol/L (10-20); BUN (Urea Nitrogen) 12 mg/dL (9.8-20.1); Calc. Creatinine Clearance 91 mL/min (70-130); Calcium 8.4 mg/dL (7.8-10.44); Carbon Dioxide 31 mmol/L (23-31); Chloride 97 mmol/L (98-107); Glucose 100 mg/dL (80-115); Potassium 3.1 mmol/L (3.5-5.1); Sodium 142 mmol/L (136-145)
[2021-02-26] MEDS: Levothyroxine Sodium 50 MCG TAB PO SCH (05:39)
[2021-02-26] MEDS: Metoclopramide HCl 10 MG/2 ML VIAL IVP SCH ×3 (05:39→21:23)
[2021-02-26] MEDS: Pantoprazole 80 MG in Sodium Chloride 0.9% 100 ML IVPB SCH (06:37)
[2021-02-26] MEDS ORDERED: Iopamidol-370 76% 500 ML 1 ML ONE (10:01)
[2021-02-26] MEDS ORDERED: Lidocaine 1% PF 5 ML VIAL ONE (12:28)
[2021-02-26] MEDS ORDERED: Ondansetron PF 4 MG/2 ML Vial ONE (12:28)
[2021-02-26] MEDS ORDERED: PROPOFOL 200 MG/20 ML VIAL ONE (12:28)
[2021-02-26] MEDS ORDERED: PHENYLEPHRINE-NS 100 MCG/ML 10 ML SYRINGE ONE (12:28)
[2021-02-26] MEDS ORDERED: Succinylcholine 200 MG/10 ml SYRINGE FS ONE (12:28)
[2021-02-26] MEDS ORDERED: ePHEDrine Sulfate 50 MG/10 ML VIAL ONE (12:28)
[2021-02-26] MEDS ORDERED: Ondansetron HCl/PF 4 MG/2 ML Vial IVP PRN (13:08)
[2021-02-26] MEDS ORDERED: Promethazine HCl 25 MG/ML VIAL SLOW IVP PRN (13:08)
[2021-02-26] MEDS ORDERED: Promethazine HCl 25 MG/ML VIAL IM PRN (13:08)
[2021-02-26] MEDS ORDERED: Fentanyl 100 MCG/2 ML VIAL ONE ×2 (13:36→14:04)
[2021-02-26] MEDS: Cyanocobalamin (Vitamin B-12) 1,000 MCG TAB PO SCH (16:21)
[2021-02-26] MEDS: Polyethylene Glycol 3350 17 GM Packet PO SCH (16:21)
[2021-02-26] MEDS: Folic Acid 1 MG TAB PO SCH (16:21)
[2021-02-26] MEDS: Magnesium Oxide 400 MG TAB PO SCH ×2 (16:21→21:28)
[2021-02-26] MEDS: Saccharomyces boulardii 250 MG CAP PO SCH (16:21)
[2021-02-26] MEDS: Aspirin Chewable 81 MG TAB PO SCH (16:21)
[2021-02-26] MEDS: Metoprolol Tartrate 25 MG TAB PO SCH ×2 (16:21→21:28)
[2021-02-26] MEDS: Sodium Chloride 0.9% 1,000 ML IV SCH ×2 (18:12→21:08)
[2021-02-26] MEDS ORDERED: Chloraseptic Spray 180 ml Bottle PO PRN (20:19)
[2021-02-27] MEDS: Pantoprazole 80 MG in Sodium Chloride 0.9% 100 ML IVPB SCH (00:51)
[2021-02-27 05:04] LABS: #Basophils 0.1 thou/uL (0.0-0.2); #Eosinphils 0.1 thou/uL (0.0-0.7); #Lymphocytes 3.1 thou/uL (1.20-3.40); %Basophils 0.4 % (0.0-1.0); %Eosinophils 1.2 % (0.0-10.0); %Lymphocytes 25.1 % (21.0-51.0); %Monocytes 8.3 % (0.0-10.0); %Neutrophils 64.9 % (42.0-75.0); Hemoglobin 9.3 g/dL (12.0-16.0); Mean Corpuscular HGB CONC 32.4 g/dL (32.0-36.0); Mean Corpuscular Hemoglobin 33.8 pg (27.0-31.0); Mean Platelet Volume 9.7 fL (7.4-10.4); Platelet Count 218 thou/uL (130-400); RBC Distribution Width 13.4 % (11.5-14.5); Red Blood Cell (RBC) Count 2.75 mill/uL (4.20-5.40); White Blood Cell (WBC) Count 12.3 thou/uL (4.8-10.8)
[2021-02-27 05:24] LABS: Anion Gap 12 mmol/L (10-20); BUN (Urea Nitrogen) 11 mg/dL (9.8-20.1); Calc. Creatinine Clearance 98 mL/min (70-130); Calcium 8.2 mg/dL (7.8-10.44); Carbon Dioxide 33 mmol/L (23-31); Chloride 98 mmol/L (98-107); Glucose 79 mg/dL (80-115); Sodium 140 mmol/L (136-145)
[2021-02-27 05:37] LABS: Potassium 2.7 mmol/L (3.5-5.1)
[2021-02-27] MEDS: Metoclopramide HCl 10 MG/2 ML VIAL IVP SCH ×3 (06:19→20:48)
[2021-02-27] MEDS: Levothyroxine Sodium 50 MCG TAB PO SCH (06:19)
[2021-02-27] MEDS ORDERED: Electrolyte Replacement Protocol FS PRN (06:30)
[2021-02-27] MEDS: Potassium Chloride 40 MEQ in Premix Bag 1 BAG IVPB SCH ×2 (06:37→10:36)
[2021-02-27] MEDS: Magnesium Oxide 400 MG TAB PO SCH ×2 (10:11→20:47)
[2021-02-27] MEDS: Aspirin Chewable 81 MG TAB PO SCH (10:11)
[2021-02-27] MEDS: Metoprolol Tartrate 25 MG TAB PO SCH ×2 (10:11→20:48)
[2021-02-27] MEDS: Cyanocobalamin (Vitamin B-12) 1,000 MCG TAB PO SCH (10:11)
[2021-02-27] MEDS: Folic Acid 1 MG TAB PO SCH (10:11)
[2021-02-27] MEDS: Polyethylene Glycol 3350 17 GM Packet PO SCH (10:11)
[2021-02-27] MEDS: Saccharomyces boulardii 250 MG CAP PO SCH (10:12)
[2021-02-27 11:13] LABS: Magnesium 1.7 mg/dL (1.6-2.6); Potassium 3.3 mmol/L (3.5-5.1)
[2021-02-27] MEDS ORDERED: Magnesium 2 GM/50 ML 2 GM in Premix Bag 1 BAG IVPB SCH (12:30)
[2021-02-27] MEDS: Dextrose 5 %-0.45 % NaCl 1,000 ML IV SCH (13:02)
[2021-02-27 13:32] LABS: SARS-CoV-2 NAA Rapid Test Not Detected (NotDetected)
[2021-02-27] MEDS: Pantoprazole 40 MG VIAL IVP SCH (20:48)
[2021-02-28] MEDS: Levothyroxine Sodium 50 MCG TAB PO SCH (05:08)
[2021-02-28] MEDS: Metoclopramide HCl 10 MG/2 ML VIAL IVP SCH ×3 (05:44→21:26)
[2021-02-28] MEDS: Cyanocobalamin (Vitamin B-12) 1,000 MCG TAB PO SCH (07:51)
[2021-02-28] MEDS: Dextrose 5 %-0.45 % NaCl 1,000 ML IV SCH (07:51)
[2021-02-28] MEDS: Aspirin Chewable 81 MG TAB PO SCH (07:51)
[2021-02-28] MEDS: Metoprolol Tartrate 25 MG TAB PO SCH ×2 (07:52→21:26)
[2021-02-28] MEDS: Folic Acid 1 MG TAB PO SCH (07:52)
[2021-02-28] MEDS: Saccharomyces boulardii 250 MG CAP PO SCH (07:52)
[2021-02-28] MEDS: Polyethylene Glycol 3350 17 GM Packet PO SCH (07:52)
[2021-02-28] MEDS: Pantoprazole 40 MG VIAL IVP SCH ×2 (07:52→21:26)
[2021-02-28] MEDS: Magnesium Oxide 400 MG TAB PO SCH (07:52)
[2021-02-28] MEDS ORDERED: D5 1/2 NS w/40 mEq KCL 1,000 ML IV SCH (09:30)
[2021-02-28] MEDS ORDERED: HumaLOG 300 UNITS/3 ML VIAL SC PRN (09:30)
[2021-02-28] MEDS ORDERED: Dextrose 5% in Water 1,000 ML IV PRN (09:30)
[2021-02-28] MEDS ORDERED: Dextrose 50% Abboject 50 ML SYRINGE SLOW IVP PRN (09:30)
[2021-02-28 10:31] LABS: Anion Gap 10 mmol/L (10-20); BUN (Urea Nitrogen) 8 mg/dL (9.8-20.1); Calc. Creatinine Clearance 96 mL/min (70-130); Carbon Dioxide 31 mmol/L (23-31); Chloride 103 mmol/L (98-107); Glucose 103 mg/dL (80-115); Potassium 3.1 mmol/L (3.5-5.1); Sodium 141 mmol/L (136-145)
[2021-02-28] MEDS ORDERED: Magnesium 2 GM/50 ML 2 GM in Premix Bag 1 BAG IVPB SCH (12:15)
[2021-02-28] MEDS ORDERED: Potassium Chloride 20 MEQ TAB PO SCH (12:15)
[2021-02-28] MEDS ORDERED: Potassium Chloride 20 MEQ in Premix Bag 1 BAG IVPB SCH (13:00)
[2021-02-28] MEDS: Potassium Chloride 20 MEQ in Premix Bag 1 BAG IVPB SCH ×2 (14:06→16:19)
[2021-03-01 04:54] LABS: Anion Gap 10 mmol/L (10-20); BUN (Urea Nitrogen) 6 mg/dL (9.8-20.1); Calc. Creatinine Clearance 93 mL/min (70-130); Calcium 7.7 mg/dL (7.8-10.44); Carbon Dioxide 29 mmol/L (23-31); Chloride 105 mmol/L (98-107); Glucose 97 mg/dL (80-115); Potassium 3.6 mmol/L (3.5-5.1); Sodium 140 mmol/L (136-145)
[2021-03-01] MEDS: Levothyroxine Sodium 50 MCG TAB PO SCH (05:10)
[2021-03-01] MEDS: Metoclopramide HCl 10 MG/2 ML VIAL IVP SCH ×3 (05:20→21:05)
[2021-03-01] MEDS: Aspirin Chewable 81 MG TAB PO SCH (08:53)
[2021-03-01] MEDS: Folic Acid 1 MG TAB PO SCH (08:54)
[2021-03-01] MEDS: Metoprolol Tartrate 25 MG TAB PO SCH (08:54)
[2021-03-01] MEDS: Saccharomyces boulardii 250 MG CAP PO SCH (08:54)
[2021-03-01] MEDS: Polyethylene Glycol 3350 17 GM Packet PO SCH (08:54)
[2021-03-01] MEDS: Cyanocobalamin (Vitamin B-12) 1,000 MCG TAB PO SCH (08:54)
[2021-03-01] MEDS: Pantoprazole 40 MG VIAL IVP SCH ×2 (08:57→21:05)
[2021-03-01 09:27] VITALS: BMI 27.3
[2021-03-01 10:35] LABS: PTT 26.8 sec (22.9-36.1); Prothrombin Time 13.2 sec (12.0-14.7)
[2021-03-01 10:43] LABS: Cardiac Risk 3.6 (Less than 4.5); Cholesterol 109 mg/dl (< 200 Desired); HDL Cholesterol 30 mg/dL (>60 Neg Risk); LDL Cholesterol, Calculated 59 mg/dL; Phosphorus 3.1 mg/dL (2.3-4.7); Triglycerides 102 mg/dL (Less than 150)
[2021-03-01] MEDS: Metoprolol Tartrate 5 MG/5 ML VIAL IVP SCH ×3 (12:04→23:21)
[2021-03-01] MEDS ORDERED: Magnesium 2 GM/50 ML 2 GM in Premix Bag 1 BAG IVPB SCH (12:30)
[2021-03-01] MEDS ORDERED: COPPER IV SCH (14:00)
[2021-03-01] MEDS ORDERED: MULTIVITAMINS IV SCH (14:00)
[2021-03-01] MEDS ORDERED: SELENIUM IV SCH (14:00)
[2021-03-01] MEDS ORDERED: MANGANESE IV SCH (14:00)
[2021-03-01] MEDS ORDERED: ZINC IV SCH (14:00)
[2021-03-01] MEDS ORDERED: [UNRECOGNIZED DRUG - OTHER] IV SCH (14:00)
[2021-03-02 05:30] LABS: ALT (SGPT) 14 U/L (8-55); AST (SGOT) 18 U/L (5-34); Albumin 2.5 g/dL (3.4-4.8); Alkaline Phosphatase 110 U/L (40-110); Anion Gap 9 mmol/L (10-20); BUN (Urea Nitrogen) 9 mg/dL (9.8-20.1); Bilirubin, Total 0.5 mg/dL (0.2-1.2); Calc. Creatinine Clearance 96 mL/min (70-130); Calcium 7.8 mg/dL (7.8-10.44); Carbon Dioxide 27 mmol/L (23-31); Cardiac Risk 3.6 (Less than 4.5); Chloride 105 mmol/L (98-107); Cholesterol 98 mg/dl (< 200 Desired); Globulin 2.4 g/dL (2.4-3.5); Glucose 164 mg/dL (80-115); HDL Cholesterol 27 mg/dL (>60 Neg Risk); LDL Cholesterol, Calculated 51 mg/dL; Magnesium 1.7 mg/dL (1.6-2.6); Phosphorus 3.2 mg/dL (2.3-4.7); Potassium 3.3 mmol/L (3.5-5.1); Protein, Total 4.9 g/dL (5.8-8.1); Sodium 138 mmol/L (136-145); Triglycerides 102 mg/dL (Less than 150)
[2021-03-02] MEDS: Metoclopramide HCl 10 MG/2 ML VIAL IVP SCH (05:37)
[2021-03-02] MEDS: Metoprolol Tartrate 5 MG/5 ML VIAL IVP SCH ×2 (05:40→11:14)
[2021-03-02] MEDS ORDERED: Levothyroxine 100 MCG SDV IVP SCH (06:00)
[2021-03-02] MEDS ORDERED: Magnesium 2 GM/50 ML 2 GM in Premix Bag 1 BAG IVPB SCH (06:15)
[2021-03-02] MEDS ORDERED: Amino Acids 4.25 %/Dextrose 5% 2,000 ML BAG IV SCH (09:00)
[2021-03-02] MEDS ORDERED: AA 4.25 %/CALCIUM/LYTES/D5W 2,000 ML IV SCH (09:00)
[2021-03-02 09:35] LABS: #Eosinphils 0.1 thou/uL (0.0-0.7); #Lymphocytes 2.3 thou/uL (1.20-3.40); #Monocytes 0.8 thou/uL (0.11-0.59); #Neutrophils 4.8 thou/uL (1.40-6.50); %Basophils 0.6 % (0.0-1.0); %Eosinophils 1.4 % (0.0-10.0); %Lymphocytes 28.7 % (21.0-51.0); %Neutrophils 59.4 % (42.0-75.0); Hemoglobin 9.5 g/dL (12.0-16.0); Mean Corpuscular HGB CONC 32.9 g/dL (32.0-36.0); Mean Platelet Volume 9.7 fL (7.4-10.4); Platelet Count 238 thou/uL (130-400); RBC Distribution Width 13.7 % (11.5-14.5); Red Blood Cell (RBC) Count 2.79 mill/uL (4.20-5.40); White Blood Cell (WBC) Count 8.1 thou/uL (4.8-10.8)
[2021-03-02] MEDS: Potassium Chloride 20 MEQ in Premix Bag 1 BAG IVPB SCH ×2 (09:47→12:00)
[2021-03-02] MEDS: Folic Acid 1 MG TAB PO SCH (09:49)
[2021-03-02] MEDS: Aspirin Chewable 81 MG TAB PO SCH (09:49)
[2021-03-02] MEDS: Saccharomyces boulardii 250 MG CAP PO SCH (09:49)
[2021-03-02] MEDS: Pantoprazole 40 MG VIAL IVP SCH (09:49)
[2021-03-02] MEDS: Polyethylene Glycol 3350 17 GM Packet PO SCH (09:49)
[2021-03-02 11:14] VITALS: TEMP 97.8
[2021-03-02 11:20] VITALS: BP 162/72
== END 2021-03-02 12:15 | disposition short-term general hospital (02) | DRG 853 ==
LOC: ERS 17:48 → CCU 20:23 → 2NO 02-19 22:02
PROVIDERS: ADMIT Internal Medicine; ATTEND Internal Medicine
PROC: 0D9670Z Drainage of Stomach with Drainage Device, Via Natural or Artificial Opening (ICD-10-PCS; 2021-02-16)
PROC: 3E033XZ Introduction of Vasopressor into Peripheral Vein, Percutaneous Approach (ICD-10-PCS; 2021-02-16)
PROC: 02HV33Z Insertion of Infusion Device into Superior Vena Cava, Percutaneous Approach (ICD-10-PCS; 2021-02-16)
PROC: B548ZZA Ultrasonography of Superior Vena Cava, Guidance (ICD-10-PCS; 2021-02-16)
PROC: 8E0ZXY6 Isolation (ICD-10-PCS; 2021-02-16)
PROC: 0DJW4ZZ Inspection of Peritoneum, Percutaneous Endoscopic Approach (ICD-10-PCS; principal; 2021-02-17)
PROC: 30233K1 Transfusion of Nonautologous Frozen Plasma into Peripheral Vein, Percutaneous Approach (ICD-10-PCS; 2021-02-17)
PROC: 0DB68ZX Excision of Stomach, Via Natural or Artificial Opening Endoscopic, Diagnostic (ICD-10-PCS; 2021-02-20)
PROC: 0D768ZZ Dilation of Stomach, Via Natural or Artificial Opening Endoscopic (ICD-10-PCS; 2021-02-20)
PROC: 4A023N8 Measurement of Cardiac Sampling and Pressure, Bilateral, Percutaneous Approach (ICD-10-PCS; 2021-02-24)
PROC: B2111ZZ Fluoroscopy of Multiple Coronary Arteries using Low Osmolar Contrast (ICD-10-PCS; 2021-02-24)
PROC: B2161ZZ Fluoroscopy of Right and Left Heart using Low Osmolar Contrast (ICD-10-PCS; 2021-02-24)
PROC: 0D968ZZ Drainage of Stomach, Via Natural or Artificial Opening Endoscopic (ICD-10-PCS; 2021-02-26)
PROC: 0D768ZZ Dilation of Stomach, Via Natural or Artificial Opening Endoscopic (ICD-10-PCS; 2021-02-26)
DX: A41.9 Sepsis, unspecified organism (principal); R65.21 Severe sepsis with septic shock; Z20.822 Contact with and (suspected) exposure to COVID-19; R57.1 Hypovolemic shock; N39.0 Urinary tract infection, site not specified; I24.8 Other forms of acute ischemic heart disease; N17.9 Acute kidney failure, unspecified; E87.2 Acidosis; K76.6 Portal hypertension; K31.1 Adult hypertrophic pyloric stenosis; E86.0 Dehydration; I25.10 Atherosclerotic heart disease of native coronary artery without angina pectoris; K43.2 Incisional hernia without obstruction or gangrene; K43.9 Ventral hernia without obstruction or gangrene; I08.3 Combined rheumatic disorders of mitral, aortic and tricuspid valves; K31.89 Other diseases of stomach and duodenum; K44.9 Diaphragmatic hernia without obstruction or gangrene; K21.00 Gastro-esophageal reflux disease with esophagitis, without bleeding; F17.210 Nicotine dependence, cigarettes, uncomplicated; I10 Essential (primary) hypertension; E03.9 Hypothyroidism, unspecified; K22.8 Other specified diseases of esophagus; E88.09 Other disorders of plasma-protein metabolism, not elsewhere classified; E78.5 Hyperlipidemia, unspecified; E78.00 Pure hypercholesterolemia, unspecified; E86.9 Volume depletion, unspecified; K52.9 Noninfective gastroenteritis and colitis, unspecified; D53.9 Nutritional anemia, unspecified; E53.8 Deficiency of other specified B group vitamins; K29.00 Acute gastritis without bleeding; G89.29 Other chronic pain; E11.649 Type 2 diabetes mellitus with hypoglycemia without coma; M54.9 Dorsalgia, unspecified; D69.6 Thrombocytopenia, unspecified; E87.6 Hypokalemia; R13.10 Dysphagia, unspecified; Z79.84 Long term (current) use of oral hypoglycemic drugs; Z78.1 Physical restraint status; Z90.49 Acquired absence of other specified parts of digestive tract; Z90.710 Acquired absence of both cervix and uterus; Z79.899 Other long term (current) drug therapy; Z90.722 Acquired absence of ovaries, bilateral; Z82.49 Family history of ischemic heart disease and other diseases of the circulatory system
CPT/HCPCS: 0240U; 36415; 36416; 36430; 36556; 36600; 70450; 71045; 71260; 74018; 74019; 74177; 76770; 80048; 80053; 80061; 80076; 80202; 81001; 81003; 81015; 82103; 82104; 82105; 82274; 82533; 82550; 82553; 82607; 82746; 82805; 83036; 83516; 83540; 83550; 83605; 83630; 83690; 83735; 83880; 84100; 84134; 84439; 84443; 84484; 85025; 85060; 85610; 85730; 86706; 86709; 86803; 86850; 86900; 86901; 87040; 87045; 87046; 87077; 87086; 87324; 87328; 87329; 87340; 87427; 87449; 88305; 93005; 93306; 93460; 93798; 94002; 94003; 94640; 96365; 96367; 96375; 99292; C9113; J0692; J1100; J1644; J1815; J1940; J2001; J2185; J2250; J2370; J2405; J2704; J2765; J3010; J3370; J3430; J3475; J3480; J3490; J7050; J7070; J7620; P9059; Q0162; Q9967; S0020; U0002; U0005

== ENCOUNTER 2021-09-01 07:06 | Day surgery (SDC) | payer BC ==
[2021-08-30 13:29] VITALS: BMI 25.6
[2021-09-01 08:41] LABS: SARS-CoV-2 NAA Rapid Test Not Detected (NotDetected)
[2021-09-01] MEDS ORDERED: PROPOFOL 200 MG/20 ML VIAL ONE (09:30)
[2021-09-01] MEDS ORDERED: Lidocaine 1% PF 5 ML VIAL ONE (09:30)
[2021-09-01] MEDS ORDERED: PHENYLEPHRINE-NS 100 MCG/ML 10 ML SYRINGE ONE (09:30)
== END 2021-09-01 11:40 | disposition home or self-care (01) ==
LOC: SDC 07:06
PROVIDERS: ATTEND Internal Medicine Gastroenterology
PROC: 3E0H8GC Introduction of Other Therapeutic Substance into Lower GI, Via Natural or Artificial Opening Endoscopic (ICD-10-PCS; principal; 2021-09-01)
DX: A04.71 Enterocolitis due to Clostridium difficile, recurrent (principal); K57.30 Diverticulosis of large intestine without perforation or abscess without bleeding; Z79.02 Long term (current) use of antithrombotics/antiplatelets; Z79.82 Long term (current) use of aspirin; Z79.84 Long term (current) use of oral hypoglycemic drugs; Z79.899 Other long term (current) drug therapy; Z20.822 Contact with and (suspected) exposure to COVID-19
CPT/HCPCS: J2704; U0002

== ENCOUNTER 2021-10-06 14:04 | Outpatient (CLI) | payer BC, MEDICARE | END 2021-10-06 14:05 | disposition home or self-care (01) | LOC: BICMAMMO 14:04 | PROVIDERS: ATTEND Registered Nurse | DX: Z12.31 Encounter for screening mammogram for malignant neoplasm of breast (principal) | CPT/HCPCS: 77063; 77067 ==

== ENCOUNTER 2022-11-28 13:43 | Outpatient (CLI) | payer BC | END 2022-11-28 13:44 | disposition home or self-care (01) | LOC: BICMAMMO 13:43 | PROVIDERS: ATTEND Registered Nurse | DX: Z12.31 Encounter for screening mammogram for malignant neoplasm of breast (principal); R92.1 Mammographic calcification found on diagnostic imaging of breast | CPT/HCPCS: 77063; 77067 ==

== ENCOUNTER 2025-06-04 10:08 | Outpatient (CLI) | payer BC | END 2025-06-04 10:09 | disposition home or self-care (01) | LOC: BICMAMMO 10:08 | PROVIDERS: ATTEND Registered Nurse | DX: Z12.31 Encounter for screening mammogram for malignant neoplasm of breast (principal); M85.851 Other specified disorders of bone density and structure, right thigh; M85.852 Other specified disorders of bone density and structure, left thigh; Z78.0 Asymptomatic menopausal state | CPT/HCPCS: 77063; 77067; 77080 ==